=== PATIENT | female | born 2000 | race Caucasian/White ===

== ENCOUNTER 2022-10-04 19:24 | Emergency (ER) | payer OTHER, SELFPAY ==
[2022-10-04 19:53] VITALS: BP 123/73; PULSE 64; RESP 16; TEMP 37.1; O2SAT 99; BMI 26.6
--- NOTE | 2022-10-04 21:15 | ED.WOUNDLAC ---
HPI - Wound/Laceration General Date Seen: 10/04/22 Chief Complaint: Laceration/Wound Stated Complaint: Cut open Left Middle finger Time Seen by Provider: 10/04/22 20:11 Source: patient Mode of arrival: ambulatory Limitations: no limitations History of Present Illness HPI narrative: Patient is a 22-year-old [employer] student who presents here after she cut her left 3rd finger while cutting a tomato. She thinks she may need stitches she is a competitive swimmer, she does not have an updated tetanus shot, but understands the risk associated with this, and declines this intervention currently. She denies any numbness tingling or weakness, she is able to move her finger fully but she thought she might need a stitch or 2. And presents for help with this. Immunizations are otherwise up-to-date. Place: school Patient tetanus UTD: No Context: accidental Associated symptoms: none Treatments prior to arrival: bandage Related Data Allergies Allergy/AdvReac Type Severity Reaction Status Date / Time Penicillins Allergy Severe Anaphylaxis Verified 10/04/22 19:59 Review of Systems Status of ROS: Reports: 6 or more systems reviewed and unremarkable except as noted in History and below Exam Narrative: Exam Narrative: On examination she is right-hand dominant, there was a very small peninsula shaped laceration that runs along the radial aspect of her left 3rd fingernail, total course of approximately 1.5 cm. This appears to have vascular integrity, she has a normal D IP PIP flexion extension, sensation is normal. Cap refill is excellent. I discussed with her that it is too small to suture, but would be amiable to glue, after use of let on this is cleaned off with Hibiclens. I dried it and was able to glue with no problem. I did give her a stack finger splint that she can use. Const: Vital Signs, click to edit/add: Vital Signs - 24 hr 10/04/22 19:53 Temperature 98.7 F Pulse Rate [Pulse Oximeter] 64 Respiratory Rate 16 Blood Pressure [Ri ght Upper Arm] 123/73 Pulse Oximetry 99 Oxygen Delivery Me thod Room Air Course Vital Signs Vital signs: Initial Vital Signs Temperature 98.7 F 10/04/22 19:53 Temperature Source Temporal Artery Scan 10/04/22 19:53 Pulse Rate 64 10/04/22 19:53 Pulse Rhythm 10/04/22 19:53 Pulse Strength 3+ Normal 10/04/22 19:53 Respiratory Rate 16 10/04/22 19:53 Blood Pressure 123/73 10/04/22 19:53 Blood Pressure Mean 89 10/04/22 19:53 Pulse Oximetry 99 10/04/22 19:53 Oxygen Delivery Method 10/04/22 19:53 Vital Signs Temperature 98.7 F 10/04/22 19:53 Pulse Rate 64 10/04/22 19:53 Respiratory Rate 16 10/04/22 19:53 Blood Pressure 123/73 10/04/22 19:53 Pulse Oximetry 99 10/04/22 19:53 Oxygen Delivery Method 10/04/22 19:53 Temperature 98.7 F 10/04/22 19:53 Pulse Rate 64 10/04/22 19:53 Respiratory Rate 16 10/04/22 19:53 Blood Pressure 123/73 10/04/22 19:53 Pulse Oximetry 99 10/04/22 19:53 Oxygen Delivery Method 10/04/22 19:53 Discharge Plan Discharge Clinical Impression: Laceration Patient Disposition: Home, Self-Care Condition: Improved Instructions: Finger Laceration (ED), Skin Adhesive Care (ED) Additional Instructions: Home rest use of splint for the next 3-4 days on her finger while you swim, you may take this on. I would not put a Band-Aid on her finger, nor would I use antibiotic ointment as it will breakdown the glue. Glue comes off by itself after 3-4 days, I would suggest returning here if it gets reddened increasing pain fevers chills signs of infection. Follow Up/Referrals: Provider,Not a Local [Primary Care Provider] - Stand Alone Forms: MyHealth Info Instructions
== END 2022-10-04 21:25 | disposition home or self-care (01) ==
PROVIDERS: Emergency Provider Family Medicine
DX: S61.213A Laceration without foreign body of left middle finger without damage to nail, initial encounter (principal); W26.0XXA Contact with knife, initial encounter
CPT/HCPCS: 99282; 99283